=== PATIENT | female | born 1965 | race Caucasian/White ===

== ENCOUNTER 2023-05-17 15:09 | Outpatient (CLI) | payer BC | END 2023-05-17 15:10 | disposition home or self-care (01) | LOC: CSHMAMMO 15:09 | PROVIDERS: ATTEND Family Medicine | DX: Z12.31 Encounter for screening mammogram for malignant neoplasm of breast (principal); N63.20 Unspecified lump in the left breast, unspecified quadrant | CPT/HCPCS: 77063; 77067 ==

== ENCOUNTER 2023-06-01 08:25 | Outpatient (CLI) | payer BC | END 2023-06-01 08:26 | disposition home or self-care (01) | LOC: CSHULT 08:25 | PROVIDERS: ATTEND Family Medicine | DX: N63.21 Unspecified lump in the left breast, upper outer quadrant (principal) ==

== ENCOUNTER 2024-11-21 08:52 | Outpatient (CLI) | payer BC | END 2024-11-21 08:53 | disposition home or self-care (01) | LOC: CSHMAMMO 08:52 | PROVIDERS: ATTEND Family Medicine | DX: R92.8 Other abnormal and inconclusive findings on diagnostic imaging of breast (principal) | CPT/HCPCS: 77066; G0279 ==